=== PATIENT | female | born 1940 | race Caucasian/White ===

== ENCOUNTER 2024-09-01 19:53 | Emergency (ER) | payer OTHER ==
[~2024-09-01] VITALS: Ht 157.5 cm; Wt 54.4 kg
[2024-09-01 20:13] LABS: BASOPHILS # (AUTO) 0.1 K/UL (0.0-0.2); BASOPHILS % (AUTO) 0.6 % (0.0-2.0); EOSINOPHILS # (AUTO) 0.3 K/uL (0.0-0.7); HEMATOCRIT 39.4 % (31.2-41.9); HEMOGLOBIN 13.3 g/dL (10.9-14.3); LYMPHOCYTES # (AUTO) 4.1 K/uL (0.8-4.8); LYMPHOCYTES % (AUTO) 45.6 % (20.5-51.5); MEAN CORPUSCULAR HEMOGLOBIN 30.7 uug (24.7-32.8); MEAN CORPUSCULAR HGB CONC 34 g/dL (32.3-35.6); MEAN CORPUSCULAR VOLUME 90.8 fL (75.5-95.3); MONOCYTES # (AUTO) 0.8 K/uL (0.1-1.30); NEUTROPHILS # (AUTO) 3.8 K/uL (1.8-8.9); NEUTROPHILS % (AUTO) 41.8 % (38.5-71.5); PLATELET COUNT (AUTO) 332 K/uL (179-408); RED BLOOD CELL COUNT(AUTO) 4.34 MIL/uL (3.63-4.92)
[2024-09-01 20:17] LABS: DIFFERENTIAL COMMENT 1
[2024-09-01 20:27] LABS: CALCIUM 9.1 mg/dL (8.5-10.1); CARBON DIOXIDE 29 mmol/L (21-32); CHLORIDE 105 mmol/L (98-107); CREATININE 1.3 mg/dL (0.6-1.3); GLUCOSE 116 mg/dL (74-106); POTASSIUM 4.2 mmol/L (3.5-5.1); SODIUM SERUM 143 mmol/L (136-145); UREA NITROGEN, BLOOD 27 mg/dL (7-18)
[2024-09-01] MEDS ORDERED: METOCLOPRAMIDE HCL 10 MG/2 ML VIAL ONE (20:28)
[2024-09-01] MEDS: METOCLOPRAMIDE HCL 10 MG/2 ML VIAL IV ONE (20:32)
[2024-09-01 20:33] LABS: ALANINE AMINOTRANSFERASE 28 U/L (14-59); ALBUMIN 3.8 g/dL (3.4-5.0); ALKALINE PHOSPHATASE 55 U/L (50-136); ASPARTATE AMINOTRANSFERASE 34 U/L (15-37); BILIRUBIN,DIRECT 0.1 mg/dL (0.0-0.2); BILIRUBIN,TOTAL 0.4 mg/dL (0.2-1.0); TOTAL PROTEIN, SERUM 7.1 g/dL (6.4-8.2)
[2024-09-01] MEDS ORDERED: HYDROMORPHONE 1 MG/1 ML DISP.SYRIN ONE (21:13)
[2024-09-01] MEDS: HYDROMORPHONE 1 MG/1 ML DISP.SYRIN IV ONE (21:18)
[2024-09-02] MEDS ORDERED: LORAZEPAM 2 MG/1 ML VIAL ONE (00:20)
[2024-09-02] MEDS: LORAZEPAM 2 MG/1 ML VIAL IV ONE (00:26)
[2024-09-02 03:24] VITALS: O2SAT 97
== END 2024-09-02 04:00 | disposition short-term general hospital (02) ==
LOC: ER 19:53
DX: S72.142A Displaced intertrochanteric fracture of left femur, initial encounter for closed fracture (principal); R41.82 Altered mental status, unspecified; R51.9 Headache, unspecified; I10 Essential (primary) hypertension; M81.0 Age-related osteoporosis without current pathological fracture; X58.XXXA Exposure to other specified factors, initial encounter; Y93.89 Activity, other specified; Y92.009 Unspecified place in unspecified non-institutional (private) residence as the place of occurrence of the external cause; Y99.8 Other external cause status
CPT/HCPCS: 70450; 71045; 72125; 73502; 84484; 85025; 85730; A4606; A4663; J1171; J2060; J2765